=== PATIENT | female | born 1995 | race Asian ===

== ENCOUNTER 2022-06-21 16:04 | Emergency (ER) | payer MEDICAID ==
[~2022-06-21] VITALS: Ht 149.9 cm; Wt 93.5 kg
[2022-06-21 16:22] VITALS: BP 135/90
== END 2022-06-21 19:25 | disposition home or self-care (01) ==
LOC: ER 16:06
DX: H26.8 Other specified cataract (principal); Z00.8 Encounter for other general examination
CPT/HCPCS: 99281